=== PATIENT | male | born 1985 | race Two or more races ===

== ENCOUNTER 2022-05-10 17:19 | Emergency (ER) | payer OTHER ==
[~2022-05-10] VITALS: Ht 185.4 cm; Wt 90.7 kg
[2022-05-10] MEDS ORDERED: DYANAVEL X2.5 MG/1 M PO (18:00)
[2022-05-10] MEDS ORDERED: RISPERIDONE1 MG/1 ML PO (18:00)
[2022-05-10] MEDS ORDERED: LORAZEPAM1 MG PO (18:00)
[2022-05-10] MEDS ORDERED: LAMOTRIGINE25 M1 PO (18:00)
== END 2022-05-11 00:42 | disposition home or self-care (01) ==
LOC: ER 17:19
DX: A05.9 Bacterial foodborne intoxication, unspecified (principal)